=== PATIENT | male | born 1985 | race Caucasian/White ===

== ENCOUNTER 2018-06-25 18:47 | Emergency (ER) | payer MEDICAID, SELFPAY ==
[2018-06-25 18:48] VITALS: BP 132/92; PULSE 83; RESP 20; TEMP 36.5; O2SAT 100; BMI 25.1
--- NOTE | 2018-06-25 19:25 | ED.VISSUMM ---
- ER Visit Summary Date of Service: 06/25/18 Chief Complaint: Dizziness w/ nausea and vomiting History of Present Illness: The patient is a 33 M w/ a hx of Menieres and Vertigo. Complaining of dizziness worse with head movement or eye movement since Sunday. Today progressively worse and he has had a lot of nausea and vomiting. He denies any headache. He has had a prior history of this. He denies any recent head trauma. He is on no blood thinners. He denies any strokelike symptoms or any motor loss or weakness. Physical Examination: Young male vital signs are stable. He is afebrile. He does not look septic or toxic. He is sitting very still upright in bed holding an emesis bag he states if he moves his head at all he gets sick and wants to throw up. HEENT exam pupils round reactive light. No facial droop. Normal speech. Neck nontender. No lymphadenopathy. Lungs clear to auscultation bilaterally. Heart regular rate and rhythm no murmur. Abdomen soft and nontender. Normal bowel sounds. No peritoneal signs. Patient is moving all 4 extremities. 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 Dorsi and plantar flexion intact. Neurologically is awake and alert. Fingertip to nose within normal limits. His NIH is 0. He does have positive Hallpike he moves his head he gets extremely nauseated. Test Results: CBC normal white count of 13 H&H is 16 and 46. Electrolytes unremarkable normal BUN, creatinine and gap. Emergency Department Course and Treatment: Patient treated with IV fluids, IV Phenergan for his nausea and Ativan for his dizziness. On several repeat exams patient progressively is feeling better. At 2109 his symptoms are much better he can now move his head. His nausea is resolving and his dizziness is almost resolved. His neurologic exam remains normal. I did check his ear canals and they are unremarkable. TMs are normal. No wax. Patient family are comfortable with him being discharged home. Treatment Plan: Valium as needed for dizziness. Zofran as needed for nausea. Return if worse. Disposition: dc Impression: Acute Vertigo w/ nausea and vomiting This note was generated with [employer] dictation software. It may contain incorrect words, spelling, and punctuation that were not noted in review of the chart prior to signing ED Disposition - Plan for ED Patient: Chief Complaint: Dizziness Referrals: Camron Cristobal MD [STAFF PHYSICIAN] -
[2018-06-25] MEDS: 0.9% Normal Saline 1,000 ML 1000 ML IV (19:30)
[2018-06-25] MEDS: proMETHazine 25 MG/ML Syringe 12.5 MG IV (19:30)
[2018-06-25] MEDS: LORazepam 2 MG/ML Syringe 1 MG IV (19:32)
--- NOTE | 2018-06-25 19:38 | ED.DCSUM_ITS ---
- ER Visit Summary Date of Service: 06/25/18 Chief Complaint: Dizziness w/ nausea and vomiting History of Present Illness: The patient is a 33 M w/ a hx of Menieres and Vertigo. Complaining of dizziness worse with head movement or eye movement since Sunday. Today progressively worse and he has had a lot of nausea and vomiting. He denies any headache. He has had a prior history of this. He denies any recent head trauma. He is on no blood thinners. He denies any strokelike symptoms or any motor loss or weakness. Physical Examination: Young male vital signs are stable. He is afebrile. He does not look septic or toxic. He is sitting very still upright in bed holding an emesis bag he states if he moves his head at all he gets sick and wants to throw up. HEENT exam pupils round reactive light. No facial droop. Normal speech. Neck nontender. No lymphadenopathy. Lungs clear to auscultation bilaterally. Heart regular rate and rhythm no murmur. Abdomen soft and nontender. Normal bowel sounds. No peritoneal signs. Patient is moving all 4 extremities. 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 Dorsi and plantar flexion intact. Neurologically is awake and alert. Fingertip to nose within normal limits. His NIH is 0. He does have positive Hallpike he moves his head he gets extremely nauseated. Test Results: CBC normal white count of 13 H&H is 16 and 46. Electrolytes unremarkable normal BUN, creatinine and gap. Emergency Department Course and Treatment: Patient treated with IV fluids, IV Phenergan for his nausea and Ativan for his dizziness. On several repeat exams patient progressively is feeling better. At 2109 his symptoms are much better he can now move his head. His nausea is resolving and his dizziness is almost resolved. His neurologic exam remains normal. I did check his ear canals and they are unremarkable. TMs are normal. No wax. Patient family are comfortable with him being discharged home. Treatment Plan: Valium as needed for dizziness. Zofran as needed for nausea. Return if worse. Disposition: dc Impression: Acute Vertigo w/ nausea and vomiting This note was generated with [employer] dictation software. It may contain incorrect words, spelling, and punctuation that were not noted in review of the chart prior to signing ED Disposition - Plan for ED Patient: Chief Complaint: Dizziness Referrals: Camron Cristobal MD [STAFF PHYSICIAN] -
[2018-06-25 19:46] LABS: Anion Gap 13 (5-15); BUN 16 mg/dL (7-18); BUN/Creat Ratio 14.3 RATIO (10-20); Calcium,Total 8.8 mg/dL (8.5-10.1); Chloride 104 mmol/L (98-107); Creatinine, Serum 1.12 mg/dL (0.70-1.30); EST Glomerular Filtration Rate 80 mL/min (>60); Est Glom Filt Rate - Afr Amer 97 mL/min (>60); Estimated Creatinine Clearance 95.96 ml/min; Glucose 161 mg/dL (74-106); Potassium 3.5 mmol/L (3.5-5.1); Sodium Level 141 mmol/L (136-145)
[2018-06-25 19:53] LABS: Hematocrit 46.8 % (40-54); Hemoglobin 16.2 g/dl (13.0-16.5); Mean Corp Hgb Conc 34.6 g/gl (32-36); Mean Corpuscular Hgb 29.8 pg (27.0-32.0); Red Blood Count 5.44 M/mm3 (4.6-6.2)
[2018-06-25 19:54] LABS: Absolute Lymphocyte Count 1.92 X10^3/ul (0.83-4.51); Basophil% 0.3 % (0-1); Eosinophils% 1.5 % (0-5); Lymphocyte # 1.92 X10^3/ul (4.0); Lymphocyte % 14.8 % (19-41); Mean Platelet Vol. 9.2 fl (6.2-12.0); Monocyte% 5.8 % (0-10); Neutrophil # 10.03 X10^3/uL (2.7-7.7); Neutrophil % 77.4 % (47-70); POSITIVE COUNT NO; POSITIVE DIFFERENTIAL NO; POSITIVE MORPHOLOGY NO; Platelet Count 265 K/mm3 (150-450); RBC Distribution Width CV 12.5 % (11.6-14.6); RBC Distribution Width SD 39.3 fl (35.1-43.9)
[2018-06-25 19:55] LABS: Basophil# 0.04 X10^3/uL; Monocyte# 0.75 X10^3/uL
[2018-06-25 20:50] VITALS: BP 122/63; PULSE 75; RESP 14; O2SAT 98
--- NOTE | 2018-06-25 21:12 | ED.DEP ---
ED Disposition - Plan for ED Patient: Disposition: Home or Assisted Living Chief Complaint: Dizziness Instructions: ED Vertigo Unspecified Prescriptions: Ondansetron [Zofran Odt] 4 mg PO Q8H PRN PRN #10 tab PRN Reason: Nausea Diazepam [Valium] 5 mg PO 4X/DAY PRN PRN #14 tab PRN Reason: Vertigo Referrals: Henry Mena MD [STAFF PHYSICIAN] - 3-5 Days if not improving Additional Instructions: Valium as needed for dizziness. Zofran as needed for nausea. Plenty of fluids and rest. Return if feeling worse.
[2018-06-25 21:27] VITALS: BP 122/83; PULSE 62; RESP 13; O2SAT 96
== END 2018-06-25 21:27 | disposition home or self-care (01) ==
PROVIDERS: Emergency Provider Emergency Medicine
DX: R42 Dizziness and giddiness (principal); R11.2 Nausea with vomiting, unspecified
CPT/HCPCS: 80048; 85025; 96361; 96374; 96375; 99285